=== PATIENT | male | born 1930 | race Two or more races ===

== ENCOUNTER 2016-06-09 19:50 | Emergency (ER) | payer MEDICARE, OTHER ==
[~2016-06-09] VITALS: Ht 177.8 cm; Wt 59.0 kg
[2016-06-09 20:06] VITALS: BP 142/92
== END 2016-06-09 20:43 | disposition home or self-care (01) ==
LOC: ER 19:52
DX: R41.0 Disorientation, unspecified (principal); I10 Essential (primary) hypertension; I48.91 Unspecified atrial fibrillation; K21.9 Gastro-esophageal reflux disease without esophagitis; E11.9 Type 2 diabetes mellitus without complications
CPT/HCPCS: 99281; A4606; Z7502; Z7610